=== PATIENT | male | born 1995 | race Two or more races ===

== ENCOUNTER 2020-11-15 08:29 | Emergency (ER) | payer SELFPAY ==
[~2020-11-15] VITALS: Ht 167.6 cm; Wt 72.6 kg
[2020-11-15 09:33] VITALS: BP 127/70
[2020-11-16 10:02] LABS: Hepatitis B Surface Antibody Negative
[2020-11-16 11:12] LABS: Hepatitis B Surface Antigen Negative (Negative)
== END 2020-11-15 11:56 | disposition home or self-care (01) ==
LOC: ER 08:29
DX: S31.134A Puncture wound of abdominal wall without foreign body, left lower quadrant without penetration into peritoneal cavity, initial encounter (principal); X58.XXXA Exposure to other specified factors, initial encounter; Y93.89 Activity, other specified; Y92.89 Other specified places as the place of occurrence of the external cause; Y99.8 Other external cause status
CPT/HCPCS: 36415; 86703; 86706; 86803; 87340